=== PATIENT | female | born 1970 | race Caucasian/White ===

== ENCOUNTER 2020-04-15 14:54 | Outpatient (REF) | payer OTHER, SELFPAY ==
[2020-04-15 17:17] LABS: Creatinine Urine 63.49 mg/dL; Microalbumin Urine < 5.0 mg/L
[2020-04-15 17:21] LABS: Alanine Aminotransferase 50 U/L (0-31); Albumin Level 4.7 g/dL (3.5-5.0); Alkaline Phosphatase 121 U/L (39-117); Anion Gap 17 (12-20); Aspartate Amino Transferase 26 U/L (5-31); Bilirubin Total 0.5 mg/dL (0.0-1.0); Blood Urea Nitrogen 14 mg/dL (9-16); Calcium 9.7 mg/dL (8.4-10.2); Carbon Dioxide 22 mmol/L (22-29); Chloride 100 mmol/L (96-108); Estimated Glomerular Filt Rate 46; Glucose Random 440 mg/dL (60-115); Potassium 4.4 mmol/l (3.3-5.1); Sodium 135 mmol/L (135-145); Total Protein 7.8 g/dL (6.5-8.0)
[2020-04-16 07:46] LABS: Estimated Average Glucose 346 mg/dL; Hemoglobin A1c % 13.7 %
[2020-04-16 08:06] LABS: LDL Cholesterol Direct 105 mg/dL (<100)
== END 2020-04-15 14:55 | disposition home or self-care (01) ==
LOC: HO.HMGCLDS 14:54
PROVIDERS: PCP Internal Medicine; Visit Provider Internal Medicine
DX: E11.9 Type 2 diabetes mellitus without complications (principal); I10 Essential (primary) hypertension; E78.2 Mixed hyperlipidemia
CPT/HCPCS: 80053; 82043; 83036; 83721

== ENCOUNTER 2020-05-07 12:41 | Outpatient (REF) | payer OTHER, SELFPAY ==
--- NOTE | 2020-05-07 | MM_ITS ---
EXAMINATION: MM DIGITAL DIAGNOSTIC MAMMOGRAM, BILATERAL US BREAST, RIGHT CLINICAL INFORMATION: Abnormal clinical breast exam. The patient has a burning sensation in the outer right breast. The patient has a mobile painless lump in the outer right breast. The patient reports having had mammography elsewhere in [place] in 2015 and previous imaging in [place], [place] in 2009. Thus far, the patient has been unable to locate the exact site or images. COMPARISON: None available Imaging was obtained of the bilateral breast(s). TECHNIQUE: Digital breast imaging including tomosynthesis is performed in Craniocaudal and mediolateral oblique. Additional craniocaudal view of the right breast exaggerated toward the axilla was performed using digital breast Tomosynthesis. Digital bilateral breast tomosynthesis (3D mammography). Computer aided diagnosis was used in the interpretation of this study. Targeted sonographic evaluation of the right breast was performed using a high frequency linear transducer. FINDINGS: Breast density: There are scattered areas of fibroglandular density (breast composition category: b) Right breast: There is no suspicious mass. There is no architectural distortion. There is no suspicious calcification. There is a lymph node in the outer right breast in the area of clinical concern. Left breast: There is no suspicious mass. There is no distortion. There are no suspicious calcifications. ULTRASOUND FINDINGS: There is a circumscribed oval hypoechoic mass with long axis parallel to the chest wall and an echogenic hilum in the area of palpable concern (9:00 position, 14 cm from the right nipple). This has the typical sonographic signature of a lymph node. There is no eccentric thickening or abnormal cortical thickening. MM/MM tomosynthesis diagnostic BI IMPRESSION: There is no evidence of malignancy. There is a nonspecific nonenlarged lymph node in the area of palpable concern. This should be managed on a clinical basis. Direct comparison with previous studies would be helpful. ASSESSMENT: BI-RADS 2-benign RECOMMENDATIONS: The patient should be managed on the basis of the clinical breast exam. If no intervention is undertaken recommend monthly clinical breast exam and serial clinical breast exams by the provider Written and verbal communication of these findings and recommendations was given to the patient at the time of the examination.
== END 2020-05-07 12:42 | disposition home or self-care (01) ==
LOC: HO.MAMMO 12:41
PROVIDERS: PCP Internal Medicine; Visit Provider Internal Medicine
DX: N64.4 Mastodynia (principal)
CPT/HCPCS: 76642; 77062; 77066